=== PATIENT | male | born 1985 | race Caucasian/White ===

== ENCOUNTER 2025-06-08 12:57 | Emergency (ER) | payer OTHER, SELFPAY ==
[2025-06-08 12:57] VITALS: BP 148/98; PULSE 96; RESP 17; TEMP 36.4; O2SAT 99
--- NOTE | 2025-06-08 12:58 | ED_ITS ---
HPI - Wound/Laceration General Chief Complaint: Wound/Laceration Stated Complaint: thumb laceration Time Seen by Provider: 06/08/25 12:58 Source: patient Mode of arrival: ambulatory Limitations: no limitations History of Present Illness HPI narrative: Patient is a 40-year-old male with a left thumb laceration after cutting carpet prior to arrival. He cut the extensor surface of the left thumb near the base. Last tetanus was in the last 5 years. Pain is minimal. Bleeding is minimal. This was an accident. Onset (ago): minute(s) ( Thirty) Location: other ( left thumb) Place: work Patient tetanus UTD: Yes Context: accidental Associated symptoms: none Treatments prior to arrival: bandage Related Data Home Medications ?Medication ?Instructions ?Recorded ?Confirmed ?Last Taken ?Type buprenorphine HCl 8 mg sublingual 8 mg sublingual DAILY 06/08/25 06/08/25 Unknown History tablet Allergies Allergy/AdvReac Type Severity Reaction Status Date / Time No Known Allergies Allergy Verified 06/08/25 13:10 Review of Systems Review of Systems: All systems reviewed & are unremarkable except as noted in HPI and below Constitutional: Constitutional: Reports no additional constitutional complaints Eyes: Eyes: Reports no additional eye complaints ENT: Reports system reviewed and no additional complaints, except as documented Cardiovascular: Cardiovascular: Reports no additional cardiovascular complaints Respiratory: Respiratory: Reports no additional respiratory complaints Gastrointestinal: Gastrointestinal: Reports no additional gastrointestinal complaints Genitourinary: Genitourinary: Reports no additional male genitourinary complaints Musculoskeletal: Musculoskeletal: Reports no additional musculoskeletal complaints Integumentary/Breasts: Skin/Breast: Reports system reviewed and no additional complaints, except as docu Neurologic: Reports system reviewed and no additional complaints, except as documented Psychiatric: Psychiatric: Reports no additional psychiatric complaints Endocrine: Endocrine: Reports no additional endocrine complaints Hematologic/Lymphatic: Hematologic/Lymphatic: Reports no additional hematologic/lymphatic complaints Allergic/Immunologic: Allergic/Immunologic: Reports no additional allergic/immunologic complaints Exam Const: General: healthy appearing Nutritional Appearance: well nourished Orientation/consciousness: patient oriented x3 Limitations: no limitations HENMT: Head: normal to inspection Ears: external ears normal Face/Nose/Sinus: Normal external nose present Eyes: Conjunctivae: conjunctivae normal Pupils: Equal, round and reactive p upils present EOM: EOMs intact bilaterally Neck: Neck: normal visual inspection Chest: Chest palpation & inspection: normal inspection of the chest Resp: Effort & Inspection: normal respiratory effort and not labored Auscultation: clear to auscultation bilaterally and no crackles Cardio: Rate: regular rate Rhythm: regular rhythm Heart sounds: no murmurs Skin: General skin exam: normal color Rashes: no rashes Wounds: wound noted Other: left thumb extensor surface near the base has a 1.2 cm linear laceration to the subcutaneous tissue with small bleeding; no foreign bodies; no infections Neuro: General: patient oriented x3 Cranial nerves: Yes Nystagmus not present Speech: normal speech Gait exam (Neuro): Normal gait present Extrem: General: normal to inspection Psych: Mental Status: mental status grossly normal Affect: normal affect Attitude: cooperative Course Vital Signs Vital signs: Vital Signs Temperature 36.4 C L 06/08/25 12:57 Pulse Rate 96 06/08/25 12:57 Respiratory Rate 17 06/08/25 12:57 Blood Pressure 148/98 H 06/08/25 12:57 Pulse Oximetry 99 06/08/25 12:57 Oxygen Delivery Room Air 06/08/25 12:57 Temperature 36.4 C L 06/08/25 12:57 Pulse Rate 96 06/08/25 12:57 Respiratory Rate 17 06/08/25 12:57 Blood Pressure 148/98 H 06/08/25 12:57 Pulse Oximetry 99 06/08/25 12:57 Oxygen Delivery Room Air 06/08/25 12:57 Procedures Other Procedure Procedure 1: Other Procedure: Left thumb laceration repair: Area cleaned with chlorhexidine spray, anesthesia with 5 cc lidocaine, 4-0 nylon placed x4 simple sutures, area cleaned again and antibiotic ointment placed on top of wound, bandage placed, patient tolerated procedure well and no complications MDM - Wound/Laceration MDM Narrative Medical decision making narrative: patient is a 40-year-old male with a left thumb laceration prior to arrival. Tetanus up-to-date. We will place sutures in place for closure. Discharge Plan Discharge Clinical Impression: Finger laceration Qualifiers: Encounter type: initial encounter Finger: thumb Damage to nail status: without damage Foreign body presence: without foreign body Laterality: left Qualified Code(s): S61.012A - Laceration without foreign body of left thumb without damage to nail, initial encounter Patient Disposition: Home Condition: Stable Instructions: Laceration (ED) Additional Instructions: Please have the stitches removed in 7-[address] antibiotic ointment on the area daily. Use a light dressing. Patient Language: [place] Prescriptions: No Action buprenorphine HCl 8 mg tablet, sublingual 8 mg sublingual DAILY Follow-up/Referrals: Trevor Escalante MD [Physician] - Time of Disposition: 13:50
[2025-06-08] MEDS: LIDOCAINE 1% LOCAL INJ 10 ML VIAL INFILTRATE (13:11)
[2025-06-08] MEDS: NEOMYCIN/POLYMYXIN/BACITRACIN OINTMENT PACKET 1 PACKET TOPICAL (13:11)
--- OUTSIDE RECORDS SUMMARY | 2025-06-08 13:57 | XMS_ITS | Patient Health Record ---
Author Organization [facility] [employer] Address [address] [facility] [address] [place] [address] Care Team Providers Care Fruit Shipper Name Role Phone Jarad Ng Unavailable [phone] Reason For Referral No Information Plan Of Treatment No Information
--- OUTSIDE RECORDS SUMMARY | 2025-06-08 13:57 | XMS_ITS | Clinical Summary ---
Author Organization [facility] Address [address] [place] [address] Care Team Providers Care Pulley Man Name Role Phone Unavailable Primary Care Provider Unavailabl e Source Comments [facility],non-owned Affiliates and Associated Physician Practices is amultiple site organization consisting of ambulatory clinics and hospital sitesin [place], [place], [place] and [place]. This disclosure is being madepursuant to the Care Everywhere program and may not contain all information available regarding this patient. Last updated [facility] Allergies No known active allergies Social History Tobacco Use Types Packs/Day Years Used Date Smoking Tobacco: Every Day Smokeless Tobacco: Never Alcohol Use Standard Drinks/Week Comments Yes 0 (1 standard drink = 0.6 oz pur e alcohol) Sex and Gender Information Value Date Recorded Sex Assigned at Not on file Legal Sex Male 12:23 PM CDT Gender Identity Not on file Sexual Orientation Not on file Last Filed Vital Signs Vital Sign Reading Time Taken Comments Blood Pressure 125/96 08/21/2020 2:30 PM CDT Pulse 77 08/21/2020 2:33 PM CDT Temperature 37 C (98.6 F) 08/21/2020 10:14 AM CDT Respiratory Rate 16 08/21/2020 2:30 PM CDT Oxygen Saturation 98% 08/21/2020 2:30 PM CDT Inhaled Oxygen Concentration - - Weight 54.4 kg (120 lb) 08/21/2020 10:14 AM CDT Height 177.8 cm (5' 10) 08/21/2020 10:14 AM CDT Body Mass Index 17.22 08/21/2020 10:14 AM CDT Plan of Treatment Health Maintenance Due Date Last Done Comments HEPATITIS C SCREENING 04/24/2005 DTAP/TDAP/TD VACCINES (1 - Tdap) 2006 HEPATITIS B VACCINE (1 of 3 - 19+ 3-dose series) 2006 HPV VACCINE (1 - 3-dose SCDM series) 2014 COVID-19 VACCINE (1 - 2023-2 5 season) 2024 DEPRESSION SCREENING 11/25/2024 INFLUENZA VACCINE (#1) 2025 ZOSTER VACCINE (1 of 2) 2037 HIV SCREENING Completed 08/21/2020 HIB VACCINE Aged Out No longer eligi ble based on patient's age to complete this topic MENINGOCOCCAL (Group B) VACC INE SHARED DECISION-MAKING Aged Out No longer eligibl e based on patient's age to complete this topic MENINGOCOCCAL GROUPS A/C/Y/W VACCINE Aged Out No longer eligible b ased on patient's age to complete this topic PNEUMOCOCCAL VACCINE Aged Out No long er eligible based on patient's age to complete this topic Procedures Procedure Name Priority Date/Time Associated Diagnosis Comments HIV-1 HIV-2 ANTIBODY + HIV P24 AG PANEL STAT 08/21/2020 12:29 PM CDT from Last 3 Months or Most Recently Relevant to Health Maintenance Results * HIV-1 HIV-2 ANTIBODY + HIV P24 AG PANEL (08/21/2020 12:29 PM CDT) HIV1/2 Ab + P24 Ag Non Reactive Non Reactive 08/21/2020 1:21 PM CDT [facility] Blood BLOOD SPECIMEN / Unknown Venipuncture / Unknown 08/21/2020 12:29 PM CDT 08/21/2020 12:36 PM CDT Narrative [facility] - 08/21/2020 1:21 PM CDT No Laboratory evidence of HIV infection. us Nestor Castro DO LAB - CHEMISTRY ORDERABLES Fin al Result [facility] [address] [place] [address] from Last 3 Months or Most Recently Relevant to Health Maintenance Insurance [facility]
== END 2025-06-08 14:10 | disposition home or self-care (01) ==
LOC: CHSED 13:52
PROVIDERS: Emergency Provider Emergency Medicine; Referring Provider Internal Medicine
DX: S61.012A Laceration without foreign body of left thumb without damage to nail, initial encounter (principal); W26.9XXA Contact with unspecified sharp object(s), initial encounter
CPT/HCPCS: 12001; 99282; J2003